=== PATIENT | female | born 1985 | race Caucasian/White ===

== ENCOUNTER 2017-09-03 21:53 | Emergency (ER) | payer OTHER ==
[~2017-09-03] VITALS: Ht 170.2 cm; Wt 79.8 kg
[2017-09-03] MEDS ORDERED: BIRTH CONTROL PO (22:37)
[2017-09-03] MEDS ORDERED: ONDANSETRON 2MG/ML, 2ML ONE (22:39)
[2017-09-03] MEDS ORDERED: ONDANSETRON 2MG/ML, 2ML IVPush ONE (23:00)
[2017-09-03] MEDS ORDERED: SODIUM CHLORIDE 0.9% 1,000ML IVBOLUS ONE (23:00)
[2017-09-03] MEDS ORDERED: SODIUM CHLORIDE FLUSH 10ML SYR IVF ONE (23:00)
[2017-09-03 23:03] VITALS: BP 141/88
[2017-09-03] MEDS ORDERED: PROPOFOL 10 MG/ML, 20ML ONE (23:55)
[2017-09-04] MEDS ORDERED: PROPOFOL 10 MG/ML, 20ML IVPush ONE
[2017-09-04] MEDS ORDERED: PROPOFOL 10 MG/ML, 20ML ONE (00:06)
== END 2017-09-04 01:16 | disposition home or self-care (01) ==
LOC: ED 09-04 00:45
DX: T18.128A Food in esophagus causing other injury, initial encounter (principal); X58.XXXA Exposure to other specified factors, initial encounter; Y93.89 Activity, other specified; Y92.89 Other specified places as the place of occurrence of the external cause; Y99.8 Other external cause status; Z88.0 Allergy status to penicillin; Z88.1 Allergy status to other antibiotic agents
CPT/HCPCS: 43247; 88305; 96360; 96361; 99152; 99153; 99285; J7030

== ENCOUNTER 2018-10-01 13:11 | Emergency (ER) | payer OTHER ==
[~2018-10-01] VITALS: Ht 170.2 cm; Wt 80.4 kg
[~2018-10-01 13:11] MED LIST: BIRTH CONTROL PO
[2018-10-01 13:32] VITALS: BP 153/104
[2018-10-01] MEDS ORDERED: SULFAMETH./TRIMETHOPRIM DS 800MG/160MG TABLET PO ONE (14:00)
[2018-10-01] MEDS ORDERED: SULFAMETH./TRIMETHOPRIM DS 800MG/160MG TABLET ONE (14:07)
== END 2018-10-01 14:18 | disposition home or self-care (01) ==
LOC: ED 14:09
DX: L02.415 Cutaneous abscess of right lower limb (principal)
CPT/HCPCS: 10060; 99283

== ENCOUNTER 2018-10-03 16:49 | Emergency (ER) | payer OTHER ==
[~2018-10-03] VITALS: Ht 170.2 cm; Wt 80.0 kg
[2018-10-03 16:52] VITALS: BP 150/82
--- NOTE | 2018-10-03 17:02 | NUR ---
TASK RN: Christin RYAN, at bedside to evaluate pt.
[2018-10-03] MEDS ORDERED: SULF1TAB24 PO (17:28)
--- NOTE | 2018-10-03 17:29 | NUR ---
Patient/Caregiver given discharge instructions and they have confirmed that they understand the instructions. Patient ambulatory with steady gait.
== END 2018-10-03 17:30 | disposition home or self-care (01) ==
LOC: ED 17:00
DX: L02.415 Cutaneous abscess of right lower limb (principal); Z88.0 Allergy status to penicillin; Z88.1 Allergy status to other antibiotic agents; Z88.8 Allergy status to other drugs, medicaments and biological substances
CPT/HCPCS: 99283

== ENCOUNTER 2020-02-15 21:24 | Emergency (ER) | payer OTHER ==
[~2020-02-15] VITALS: Ht 170.2 cm; Wt 76.5 kg
[~2020-02-15 21:24] MED LIST changes: +SULF1TAB24 PO
--- NOTE | 2020-02-15 21:47 | NUR ---
THIS PT CAME FROM HOME, AFTER HAVING DINNER AND SWALLOWING A PIECE OF MEAT THAT SHE NOW FEELS IS STUCK IN HER THROAT. SHE DENIES FEELING SWOLLEN THROAT, OR SOB, TALKING IN FULL SENTENCES, O2 SAT ABOVE 90 ON RA. PT HAS VOMIT BAG TO SPIT INTO. PT STATES THIS HAS HAPPENED ONCE BEFORE AND IT WAS MUCH WORSE PREVIOUSLY. PT SITTING IN BED, ON PHONE, NO SIGNS OF ACUTE DISTRESS, AT BEDSIDE.
--- NOTE | 2020-02-15 21:55 | NUR ---
ERP TO BEDSIDE, PT TALKING WITH ERP WITHOUT OBVIOUS DISTRESS.
[2020-02-15] MEDS ORDERED: SODIUM CHLORIDE FLUSH 10ML SYR IVF ONE (22:00)
[2020-02-15] MEDS ORDERED: GLUCAGON 1 MG IVPush ONE (22:00)
[2020-02-15] MEDS ORDERED: GLUCAGON 1 MG ONE (22:20)
--- NOTE | 2020-02-15 22:28 | NUR ---
PT SITTING IN BED, MEDICATED TO MAR, NO SIGNS OF DISTRESS, CALL LIGHT WITHIN REACH. WILL CONTINUE TO MONITOR.
--- NOTE | 2020-02-15 22:59 | NUR ---
UPON RETURN TO THE ROOM, THIS RN WOKE THE PT UP FROM SLEEP. PT STATES SHE FEELS "GREAT BUT STILL FEELS THE FORGIEN BODY IN THROAT."
[2020-02-15] MEDS ORDERED: PROPOFOL 10 MG/ML, 20ML ONE (23:46)
[2020-02-16] MEDS ORDERED: PROPOFOL 10 MG/ML, 20ML IVPush ONE
--- NOTE | 2020-02-16 00:17 | NUR ---
I WITNESSED WASTE OF 120MG PROPOFOL WITH MACKENZIE SELLERS
[2020-02-16 00:52] VITALS: BP 126/71
--- NOTE | 2020-02-16 01:08 | NUR ---
LATE ENTRY FOR 2355: SEE PROCEDURAL SEDATION PAPER CHARTING FOR EVENTS.
== END 2020-02-16 00:55 | disposition home or self-care (01) ==
LOC: ED 23:32
DX: T18.128A Food in esophagus causing other injury, initial encounter (principal); K21.0 Gastro-esophageal reflux disease with esophagitis; R11.2 Nausea with vomiting, unspecified; X58.XXXA Exposure to other specified factors, initial encounter; Y93.89 Activity, other specified; Y92.89 Other specified places as the place of occurrence of the external cause; Y99.8 Other external cause status
CPT/HCPCS: 43247; 96374; 99152; 99285; J1610